=== PATIENT | female | born 1985 | race African-American/Black ===

== ENCOUNTER 2018-03-24 20:30 | Emergency (ER) | payer SELFPAY ==
[2018-03-24 21:49] LABS: ABSOLUTE BASOPHILS # (AUTO) 0.1 10^3/uL (0.0-0.2); ABSOLUTE EOSINOPHILS # (AUTO) 0.1 10^3/uL (0.0-0.6); ABSOLUTE LYMPHOCYTES (AUTO) 4.5 10^3/uL (0.5-4.7); ABSOLUTE MONOCYTES (AUTO) 0.7 10^3/uL (0.1-1.4); ABSOLUTE NEUT (AUTO) 3.7 10^3/uL (1.7-8.2); BASOPHILS % (AUTO) 1.2 % (0-2); EOSINOPHILS % (AUTO) 1.1 % (0-6); HEMATOCRIT 36.5 % (36.0-47.0); HEMOGLOBIN 12.2 g/dL (12.0-15.5); LYMPHOCYTES % (AUTO) 49.3 % (13-45); MEAN CORPUSCULAR HEMOGLOBIN 28.6 pg (27.0-33.4); MEAN CORPUSCULAR HGB CONC 33.3 g/dL (32.0-36.0); MEAN CORPUSCULAR VOLUME 86 fl (80-97); MONOCYTES % (AUTO) 7.2 % (3-13); PLATELET COUNT 364 10^3/uL (150-450); RED BLOOD COUNT 4.25 10^6/uL (3.72-5.28); RED CELL DISTRIBUTION WIDTH 15.1 % (11.5-14.0); SEGMENTED NEUTROPHILS % (AUTO) 41.2 % (42-78); TOTAL CELLS COUNTED % (AUTO) 100 %
[2018-03-24 22:02] LABS: ALANINE AMINOTRANSFERASE 13 U/L (9-52); ALBUMIN 3.9 g/dL (3.5-5.0); ALKALINE PHOSPHATASE 62 U/L (38-126); ANION GAP 11 (5-19); ASPARTATE AMINO TRANSFERASE 20 U/L (14-36); BILIRUBIN,DIRECT 0.3 mg/dL (0.0-0.4); BILIRUBIN,TOTAL 0.3 mg/dL (0.2-1.3); BLOOD UREA NITROGEN 9 mg/dL (7-20); CALCIUM 9.4 mg/dL (8.4-10.2); CARBON DIOXIDE 27 mmol/L (22-30); CHLORIDE 105 mmol/L (98-107); GLUCOSE 82 mg/dL (75-110); LIPASE 67.3 U/L (23-300); POTASSIUM 3.6 mmol/L (3.6-5.0); SODIUM 143.3 mmol/L (137-145); TOTAL PROTEIN 6.9 g/dL (6.3-8.2)
--- NOTE | 2018-03-24 22:47 | ER Document Report ---
ED GI/ - General Chief Complaint: Abdominal Pain Stated Complaint: RIGHT SIDE ABDOMINAL PAIN,DIZZINESS Time Seen by Provider: 03/24/18 22:38 Notes: Patient is a 32-year-old female that comes emergency department for chief complaint of pelvic pain, worse on the right side, she also states that she felt lightheaded earlier, she felt nauseated earlier, she "kind of had dry heaves" earlier this afternoon. Symptoms started approximately 3 days ago during sexual intercourse. She denies vaginal bleeding or discharge, dysuria, flank pain, fever or chills. Past medical history includes ovarian cysts and cholecystectomy. No daily medications. LMP within the past month. TRAVEL OUTSIDE OF THE [place] IN LAST 30 DAYS: No - Related Data Allergies/Adverse Reactions: amoxicillin Allergy (Verified 03/24/18 21:22) peanut Allergy (Verified 03/24/18 20:34) berries Allergy (Uncoded 03/24/18 20:34) Past Medical History - General Information source: Patient - Social History Smoking Status: Current Some Day Smoker Chew tobacco use (# tins/day): No Frequency of alcohol use: Occasional Drug Abuse: Marijuana Lives with: Family Family History: Reviewed & Not Pertinent Patient has suicidal ideation: No Patient has homicidal ideation: No Renal/ Medical History: Reports: Hx Ovarian Cysts. Denies: Hx Peritoneal Dialysis Past Surgical History: Reports: Hx Cholecystectomy - Immunizations Hx Diphtheria, Pertussis, Tetanus Vaccination: Yes Review of Systems - Review of Systems Constitutional: No symptoms reported EENT: No symptoms reported Cardiovascular: No symptoms reported Respiratory: No symptoms reported Gastrointestinal: See HPI Genitourinary: See HPI Female Genitourinary: See HPI Musculoskeletal: No symptoms reported Skin: No symptoms reported Hematologic/Lymphatic: No symptoms reported Neurological/Psychological: No symptoms reported Physical Exam - Vital signs Vitals: Temp Pulse Resp BP Pulse Ox 97.4 F 80 18 133/81 H 99 03/24/18 20:39 03/24/18 20:39 03/24/18 20:39 03/24/18 20:39 03/24/18 20:39 - Notes Notes: GENERAL: Alert, interacts well. No acute distress. HEAD: Normocephalic, atraumatic. EYES: Pupils equal, round, and reactive to light. Extraocular movements intact. ENT: Oral mucosa moist, tongue midline. NECK: Full range of motion. Supple. Trachea midline. LUNGS: Clear to auscultation bilaterally, no wheezes, rales, or rhonchi. No respiratory distress. HEART: Regular rate and rhythm. No murmur ABDOMEN: Soft, non-tender. Non-distended. Bowel sounds present in all 4 quadrants. GENITOURINARY: Moderately large amount of yellowish vaginal discharge, normal- appearing cervix, minimal tenderness, no other concerning a normality. Shruthi RN present during exam. EXTREMITIES: Moves all 4 extremities spontaneously. No edema, normal radial and dorsalis pedis pulses bilaterally. No cyanosis. BACK: no cervical, thoracic, lumbar midline tenderness. No saddle anesthesia, normal distal neurovascular exam. NEUROLOGICAL: Alert and oriented x3. Normal speech. [cranial nerves II through XII grossly intact]. PSYCH: Normal affect, normal mood. SKIN: Warm, dry, normal turgor. No rashes or lesions noted. Course - Re-evaluation Re-evalutation: Patient does have pelvic pain on exam but the remaining abdomen is unremarkable. She is well-appearing, she declines pain medication. Vital signs unremarkable. CBC, chemistry, urinalysis unremarkable. test is negative. Pelvic examination shows large amount of yellowish discharge, some tenderness, no other abnormalities noted otherwise. Wet mount is fairly benign with only 1 + white blood cells, no other remaining antibodies. Gonorrhea and Chlamydia negative. Ultrasound is completely unremarkable. Clinical picture is most consistent with pelvic infection. Patient was treated accordingly. I discussed in detail her findings, recommendations, follow-up, and return precautions. Patient states understanding and agreement. - Vital Signs Vital signs: Temp Pulse Resp BP Pulse Ox 97.7 F 61 16 117/85 99 03/25/18 01:43 03/25/18 01:43 03/25/18 01:43 03/25/18 01:43 03/25/18 01:43 - Laboratory Result Diagrams: 03/24/18 21:27 03/24/18 21:27 Laboratory results interpreted by me: 03/24/18 21:27 RDW 15.1 H Seg Neutrophils % 41.2 L Lymphocytes % 49.3 H Discharge - Discharge Clinical Impression: Pelvic pain, Vaginal discharge Condition: Stable Disposition: HOME, SELF-CARE Additional Instructions: You have been treated for pelvic infection. Remaining workup and evaluation does not show any concerning findings. Follow-up with primary care. Return to the emergency department for any concerning or worsening symptoms including fever of 100.4 or greater, severe pain, vomiting, or any other concerning or worsening symptoms. Forms: Return to Work
[2018-03-24 23:03] LABS: APPEARANCE,URINE SLIGHTLY-CLOUDY; BILIRUBIN,URINE NEGATIVE (NEGATIVE); COLOR,URINE YELLOW; GLUCOSE, URINE NEGATIVE (NEGATIVE); KETONES,URINE NEGATIVE (NEGATIVE); LEUKOCYTE ESTERASE,URINE NEGATIVE (NEGATIVE); NITRITE,URINE NEGATIVE (NEGATIVE); PROTEIN,URINE NEGATIVE (NEGATIVE); URINE SPECIFIC GRAVITY 1.024; UROBILINOGEN,URINE NEGATIVE mg/dL (<2.0)
[2018-03-24 23:44] LABS: T.VAGINALIS (WET MOUNT) NO TRICHOMONAS SEEN; WBCS (WET MOUNT) 1+ WBCS SEEN; YEAST (WET MOUNT) NO YEAST SEEN
[2018-03-24 23:45] LABS: RBCS (WET MOUNT) RARE RBCS SEEN
--- NOTE | 2018-03-25 00:39 | RADIOLOGY REPORT (SQ) ---
EXAM DESCRIPTION: US PELVIS COMPLETED DATE/TME: 03/24/2018 22:45 CLINICAL HISTORY: 32 years Female, right pelvic pain, nausea/vomiting, hx cysts Comparison: 2..18 Technique: Transvaginal. LIMITATIONS: None. FINDINGS: 12-cm uterus, 1.3-cm endometrial stripe thickness, 3.3-cm cervical length, 3.7-cm right ovary, and 3.2-cm left ovary appear normal in size, shape, echotexture, and vascularity. No free fluid. Ovaries have small cystic peripheral follicles within normal limits. IMPRESSION: Normal pelvic sonogram..
[2018-03-25 00:59] LABS: CHLAM PCR NOT DETECTED (NOT DETECT); GON PCR NOT DETECTED (NOT DETECT)
[2018-03-25] MEDS ORDERED: LIDOCAINE 1% INJ-PF (10 MG/ML) 30 ML SDV INJ ONE (01:23)
[2018-03-25] MEDS ORDERED: CEFTRIAXONE INJ 250 MG VIAL IM ONE (01:23)
[2018-03-25] MEDS ORDERED: AZITHROMYCIN 250 MG TABLET PO ONE (01:24)
[2018-03-25] MEDS ORDERED: ONDANSETRON 4 MG TAB.RAPDIS PO ONE (01:24)
[2018-03-25 02:31] VITALS: BP 117/85
== END 2018-03-25 01:50 | disposition home or self-care (01) ==
LOC: ER 20:30
DX: R10.2 Pelvic and perineal pain (principal); N89.8 Other specified noninflammatory disorders of vagina; R42 Dizziness and giddiness; R11.0 Nausea; F17.200 Nicotine dependence, unspecified, uncomplicated; F12.10 Cannabis abuse, uncomplicated; Z90.49 Acquired absence of other specified parts of digestive tract; Z87.42 Personal history of other diseases of the female genital tract; Z88.0 Allergy status to penicillin; Z91.010 Allergy to peanuts; Z91.018 Allergy to other foods
CPT/HCPCS: 99284; 36415; 87210; 83690; 85025; 81025; 80053; 81001; 87491; 87591; 76830; 93976; S0119; J3490; J0696

== ENCOUNTER 2018-08-01 14:13 | Emergency (ER) | payer MEDICAID ==
[2018-08-01 14:21] VITALS: BP 134/74
[2018-08-01] MEDS ORDERED: KETOROLAC TROMETHAMINE 60 MG/2 ML SDV IM ONE (14:54)
--- NOTE | 2018-08-01 15:37 | RADIOLOGY REPORT (SQ) ---
EXAM DESCRIPTION: HIP RIGHT AP/LATERAL COMPLETED DATE/TIME: 08/01/2018 3:22 pm REASON FOR STUDY: severe pain with ambulation no history of trauma COMPARISON: None. NUMBER OF VIEWS: Two views. TECHNIQUE: AP pelvis and additional frog-leg view of the right hip. LIMITATIONS: None. FINDINGS: MINERALIZATION: Normal. RIGHT HIP: No fracture or dislocation. No worrisome bone lesions. No significant joint space narrow ing or bony spurring LEFT HIP: No fracture or dislocation. No worrisome bone lesions. No significant joint space narrowi ng or bony spurring PUBIS AND ISCHIUM: No fracture. PELVIS: No fracture. SACRUM: No fracture or dislocation. No worrisome bone lesions. LOWER LUMBAR SPINE: Limited view unremarkable SOFT TISSUES: No findings. OTHER: No other significant finding. IMPRESSION: NEGATIVE STUDY OF THE RIGHT HIP. NO RADIOGRAPHIC EVIDENCE OF ACUTE INJURY. TECHNICAL DOCUMENTATION: JOB ID: [id number] [email or web address]- All Rights Reserved Reading location - IP/workstation name: [email or web address]
--- NOTE | 2018-08-01 15:39 | RADIOLOGY REPORT (SQ) ---
EXAM DESCRIPTION: FOOT BILATERAL 3 VIEWS COMPLETED DATE/TIME: 08/01/2018 3:22 pm REASON FOR STUDY: severe pain with ambulation no history of trauma. Bilateral heel pain COMPARISON: None. NUMBER OF VIEWS: Three views. TECHNIQUE: AP, lateral and oblique radiographic images acquired of the right and left foot. LIMITATIONS: None. FINDINGS: MINERALIZATION: Normal. BONES: No acute fracture or dislocation. No worrisome bone lesions. There are small plantar bilater al calcaneal spurs. JOINTS: No effusions. SOFT TISSUES: No soft tissue swelling. No foreign body. OTHER: Bilateral hammertoe deformities of the 3rd toes IMPRESSION: Bilateral small plantar calcaneal spurs TECHNICAL DOCUMENTATION: JOB ID: [id number] [employer]- All Rights Reserved Reading location - IP/workstation name: [email or web address]
--- NOTE | 2018-08-01 16:27 | ER Document Report ---
HPI - HPI Time Seen by Provider: 08/01/18 14:42 Pain Level: 4 Notes: Patient is an otherwise healthy 32-year-old female who presents with bilateral foot pain as well as right hip pain. 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 Patient denies any specific injury. - CONSTITUTIONAL Constitutional: DENIES: Fever, Chills - MUSCULOSKELETAL Musculoskeletal: REPORTS: Extremity pain - R and L Foot, R Hip Past Medical History - General Information source: Patient - Social History Smoking Status: Never Smoker Chew tobacco use (# tins/day): No Frequency of alcohol use: None Drug Abuse: None Family History: Reviewed & Not Pertinent Patient has suicidal ideation: No Patient has homicidal ideation: No Renal/ Medical History: Reports: Hx Ovarian Cysts. Denies: Hx Peritoneal Dialysis Past Surgical History: Reports: Hx Cholecystectomy - Immunizations Hx Diphtheria, Pertussis, Tetanus Vaccination: Yes Vertical Provider Document - CONSTITUTIONAL Notes: PHYSICAL EXAMINATION: GENERAL: Well-appearing, well-nourished and in no acute distress. HEAD: Atraumatic, normocephalic. EYES: Pupils equal round extraocular movements intact, conjunctiva are normal. ENT: Nares patent NECK: Normal range of motion LUNGS: No respiratory distress Musculoskeletal: Normal range of motion, no swelling, erythema or ecchymosis noted to bilateral feet or hip. Normal pulses. Cap refill less than 3 seconds , normal motor and sensation distal to areas of concern. NEUROLOGICAL: Normal speech, normal gait. PSYCH: Normal mood, normal affect. SKIN: Warm, Dry, normal turgor, no rashes or lesions noted. - INFECTION CONTROL TRAVEL OUTSIDE OF THE [place] IN LAST 30 DAYS: No Course - Re-evaluation Re-evalutation: Right hip x-ray is negative for any acute findings. Bilateral foot x-rays with calcaneal spurs, this is likely because of patient's pain as patient is not used to running. - Vital Signs Vital signs: Temp Pulse Resp BP Pulse Ox 97.6 F 81 16 134/74 H 99 08/01/18 14:15 08/01/18 14:15 08/01/18 14:15 08/01/18 14:15 08/01/18 14:15 Discharge - Discharge Clinical Impression: Heel spur Qualifiers: Laterality: unspecified laterality Qualified Code(s): M77.30 - Calcaneal spur, unspecified foot Condition: Stable Disposition: HOME, SELF-CARE Additional Instructions: The x-rays of your feet show that you have what we call heel spurs. This is a small growth of bone on the bottom of your heel. It can cause pain. If it gait becomes painful enough they may consider doing surgery although most people do fine without surgery. I would suggest taking ibuprofen 600 mg every 6 hours. I suspect the pain is so severe now because you stated that you ran and you are not used to running. Ice and elevate your feet over the next couple of days. Use the note that I have given you for work. If the pain continues please follow-up with either primary care provider or a insurance verification clerk ( foot doctor). Prescriptions: Cyclobenzaprine HCl [Flexeril 10 mg Tablet] 10 mg PO TIDP PRN #15 tab PRN Reason: Forms: Return to Work Referrals: AI FAITH MD [Primary Care Provider] - Follow up as needed
== END 2018-08-01 16:35 | disposition home or self-care (01) ==
LOC: ER 14:13
DX: M77.30 Calcaneal spur, unspecified foot (principal); M79.671 Pain in right foot; M79.672 Pain in left foot; Z90.49 Acquired absence of other specified parts of digestive tract
CPT/HCPCS: 99283; 73502; 73630; J1885

== ENCOUNTER 2018-10-04 14:14 | Emergency (ER) | payer MEDICAID ==
[2018-10-04] MEDS ORDERED: KETOROLAC TROMETHAMINE 60 MG/2 ML SDV IM ONE (14:46)
[2018-10-04] MEDS ORDERED: PROCHLORPERAZINE EDISYLATE INJ 10 MG/2 ML VIAL IM ONE (14:46)
--- NOTE | 2018-10-04 15:55 | ER Document Report ---
ED Head/Face/Scalp Injury - General Chief Complaint: Head Injury without LOC Stated Complaint: POSSIBLE HEAD INJURY/FALL Time Seen by Provider: 10/04/18 14:46 Primary Care Provider: IA FAITH MD [Primary Care Provider] - Follow up as needed Information source: Patient Notes: Chief complaint: Headache History of complain:( obtained from----patient) 32 years old female who accidentally bumped back of head on a cabinet this morning, since then having blurring of vision and headache therefore present to the ED. No focal weakness numbness tingling sensation. Onset: Sudden Duration: Since this morning Severity: Mild to moderate Quality: Sharp Context: As described above Exacerbating factor and relieving factors: None REVIEW OF SYSTEMS: CONSTITUTIONAL : Denies fever, chills, or sweats. Denies recent illness. EENT: Denies eye, ear, throat, or mouth pain or symptoms. Denies nasal or sinus congestion or discharge. Denies throat, tongue, or mouth swelling or difficulty swallowing. CARDIOVASCULAR: Denies chest pain. Denies palpitations or racing or irregular heart beat. Denies ankle edema. RESPIRATORY: Denies cough, cold, or chest congestion. Denies shortness of breath, difficulty breathing, or wheezing. GASTROINTESTINAL: Denies distention. Denies nausea, vomiting, or diarrhea. Denies blood in vomitus, stools, or per rectum. Denies black, tarry stools. Denies constipation. GENITOURINARY: Denies difficulty urinating, painful urination, burning, frequency, blood in urine, or discharge. FEMALE GENITOURINARY: Denies vaginal bleeding, heavy or abnormal periods, irregular periods. Denies vaginal discharge or odor. MUSCULOSKELETAL: Denies back or neck pain or stiffness. Denies joint pain or swelling. SKIN: Denies rash, lesions or sores. HEMATOLOGIC : Denies easy bruising or bleeding. LYMPHATIC: Denies swollen, enlarged glands. NEUROLOGICAL: Denies confusion or altered mental status. Denies passing out or loss of consciousness. Denies dizziness or lightheadedness. Denies headache. Denies weakness or paralysis or loss of use of either side. Denies problems with gait or speech. Denies sensory loss, numbness, or tingling. Denies seizures. PSYCHIATRIC: Denies anxiety or stress. Denies depression, suicidal ideation, or homicidal ideation. ALL OTHER SYSTEMS REVIEWED AND NEGATIVE. PHYSICAL EXAMINATION: GENERAL: Well-appearing, well-nourished and in no acute distress. HEAD: Atraumatic, normocephalic. EYES: Pupils equal round and reactive to light, extraocular movements intact, conjunctiva are normal. ENT: Nares patent, oropharynx clear without exudates. Moist mucous membranes. NECK: Normal range of motion, without any discomfort or pain supple without lymphadenopathy LUNGS: Breath sounds clear to auscultation bilaterally and equal. No wheezes rales or rhonchi. HEART: Regular rate and rhythm without murmurs ABDOMEN: Soft, nontender, nondistended abdomen. No guarding, no rebound. No masses appreciated. Examination of genitals-deferred Musculoskeletal: Normal range of motion, no pitting or edema. No cyanosis. NEUROLOGICAL: Cranial nerves grossly intact. Normal speech, normal gait. Normal sensory, motor exams PSYCH: Normal mood, normal affect. SKIN: Warm, Dry, normal turgor, no rashes or lesions noted. Dictation was performed using [employer] voice recognition software TRAVEL OUTSIDE OF THE [place] IN LAST 30 DAYS: No - HPI Notes: Dictated - Related Data Allergies/Adverse Reactions: amoxicillin Allergy (Verified 10/04/18 14:20) ondansetron [From Zofran] Allergy (Verified 10/04/18 14:43) peanut Allergy (Verified 10/04/18 14:20) strawberry Allergy (Verified 10/04/18 14:20) Hives tree nut Allergy (Verified 10/04/18 14:20) morphine Adverse Reaction (Verified 10/04/18 14:20) berries Allergy (Uncoded 10/04/18 14:20) Past Medical History - Social History Smoking Status: Current Every Day Smoker Chew tobacco use (# tins/day): No Frequency of alcohol use: Occasional Drug Abuse: None Lives with: Family Family History: Reviewed & Not Pertinent Patient has suicidal ideation: No Patient has homicidal ideation: No Renal/ Medical History: Reports: Hx Ovarian Cysts. Denies: Hx Peritoneal Dialysis Past Surgical History: Reports: Hx Cholecystectomy - Immunizations Hx Diphtheria, Pertussis, Tetanus Vaccination: Yes Review of Systems - Review of Systems Notes: Dictated Physical Exam - Vital signs Vitals: Temp Pulse Resp BP Pulse Ox 98 F 71 16 135/87 H 98 10/04/18 14:23 10/04/18 14:23 10/04/18 14:23 10/04/18 14:23 10/04/18 14:23 - Notes Notes: Dictated Course - Vital Signs Vital signs: Temp Pulse Resp BP Pulse Ox 98 F 71 16 135/87 H 98 10/04/18 14:23 10/04/18 14:23 10/04/18 14:23 10/04/18 14:23 10/04/18 14:23 - Diagnostic Test Radiology reviewed: Reports reviewed - Reported by radiologist as no bleed incidental finding of pituitary adenoma Discharge - Discharge Clinical Impression: Pituitary abnormality Head injury Qualifiers: Encounter type: initial encounter Qualified Code(s): S09.90XA - Unspecified injury of head, initial encounter Headache Qualifiers: Headache type: other headache syndrome Qualified Code(s): G44.89 - Other headache syndrome Condition: Fair Disposition: HOME, SELF-CARE Instructions: Head Injury Precautions ([facility]) Additional Instructions: Abnormal pituitary gland please follow-up with your primary care physician for possible MRI. Prescriptions: Hydrocodone Bit/Acetaminophen [Hydrocodon-Acetaminophen 5-325] 1 each PO TID #10 tablet Referrals: AI FAITH MD [Primary Care Provider] - Follow up as needed
--- NOTE | 2018-10-04 16:13 | RADIOLOGY REPORT (SQ) ---
EXAM DESCRIPTION: CT HEAD WITHOUT COMPLETED DATE/TIME: 10/04/2018 3:53 pm REASON FOR STUDY: Head injury COMPARISON: None. TECHNIQUE: Axial images acquired through the brain without intravenous contrast. Images reviewed wi th bone, brain and subdural windows. Additional sagittal and coronal reconstructions were generated. Images stored on PACS. All CT scanners at this facility use dose modulation, iterative reconstruction, and/or weight based d osing when appropriate to reduce radiation dose to as low as reasonably achievable (ALARA). [facility]: Dose Right [facility]: CareDose [facility]: Dose Right [facility]: Teradose 4D [facility]: Smart ClearKarma RADIATION DOSE: CT Rad equipment meets quality standard of care and radiation dose reduction techniq ues were employed. CTDIvol: 53.2 mGy. DLP: 1070 mGy-cm. mGy. LIMITATIONS: None. FINDINGS: VENTRICLES: Normal size and contour. CEREBRUM: No masses. No hemorrhage. No midline shift. No evidence for acute large vascular territo ry infarct. Focal hypoattenuation within the right basal ganglia, likely prominent rebel vascular spa ce. Normal anderson/white matter differentiation. CEREBELLUM: No masses. No hemorrhage. No alteration of density. No evidence for acute infarction. EXTRAAXIAL SPACES: Enlarged sella turcica with paucity of pituitary tissue visualized. No extra-axia l collections. No discrete masses. ORBITS AND GLOBE: No intra- or extraconal masses. Normal contour of globe without masses. CALVARIUM: No fracture. PARANASAL SINUSES: No fluid or mucosal thickening. SOFT TISSUES: No mass or hematoma. OTHER: No other significant finding. IMPRESSION: No evidence of acute intracranial abnormality. Enlarged sella turcica with paucity of pituitary tissue visualized. Findings may be incidental, rela eulalia to benign intracranial hypertension or related to other cystic pituitary lesions. MRI pituitary protocol could be considered if clinically indicated. Focal hypoattenuation within the right basal ganglia, likely prominent perivascular space. EVIDENCE OF ACUTE STROKE: NO. COMMENT: Quality ID # [id number]: Final reports with documentation of one or more dose reduction techniques (e.g., Automated exposure control, adjustment of the mA and/or kV according to patient size, use of iterative reconstruction technique) TECHNICAL DOCUMENTATION: JOB ID: [id number] [employer]- All Rights Reserved Reading location - IP/workstation name: [email or web address]
[2018-10-04 16:57] VITALS: BP 107/84
== END 2018-10-04 17:00 | disposition home or self-care (01) ==
LOC: ER 14:14
DX: S09.90XA Unspecified injury of head, initial encounter (principal); W22.8XXA Striking against or struck by other objects, initial encounter; D35.2 Benign neoplasm of pituitary gland; G44.89 Other headache syndrome; H53.8 Other visual disturbances; F17.200 Nicotine dependence, unspecified, uncomplicated; Z88.0 Allergy status to penicillin; Z88.8 Allergy status to other drugs, medicaments and biological substances; Z91.010 Allergy to peanuts; Z91.018 Allergy to other foods
CPT/HCPCS: 99283; 96372; 96374; 70450; J1885; J0780

== ENCOUNTER → 2018-10-31 | Outpatient (CLI) | payer MEDICAID ==
--- NOTE | 2018-10-31 17:16 | RADIOLOGY REPORT (SQ) ---
EXAM DESCRIPTION: MRI HEAD COMBO COMPLETED DATE/TIME: 10/31/2018 4:52 pm REASON FOR STUDY: E23.7 DISORDER OF PITUITARY GLAND, UNSPECIFIED E23.7 DISORDER OF PITUITARY GLAND, UNSPECIFIED COMPARISON: CT brain 10/04/2018 TECHNIQUE: Multiplanar imaging includes noncontrasted T1, T2, FLAIR, diffusion with ADC map and post gadolinium contrast T1 sequences. Additional thin section sagittal and coronal T2, T1 precontrast, T1 post contrasted images through th e pituitary fossa were obtained. Motion attenuation sequences were used. Images stored on PACS. CONTRAST TYPE AND DOSE: 20 mL Dotarem. RENAL FUNCTION: Not indicated. ACR Type II contrast agent associated with few, if any, unconfounded cases of NSF LIMITATIONS: None. FINDINGS: PITUITARY FOSSA: Empty sella, with an enlarged sella turcica and pancake shaped pituitary gland flattened against the floor of the sella. Pituitary gland is grossly normal in volume with a m idline infundibulum and normal suprasellar cistern/optic chiasm. Cavernous sinuses are normal. CSF SPACES: Normal in size and contour. No hemorrhage. CEREBRUM: Sulci and gyri normal in size and contour. Normal white matter signal on FLAIR imaging. No evidence of hemorrhage, mass, or extraaxial fluid collection. No abnormal enhancement post contrast. POSTERIOR FOSSA: No signal alteration. No hemorrhage. No edema, masses, or mass effect. Internal librado tory canals, cerebellopontine angles, mastoids normal. No enhancing lesions. No abnormal enhancement post contrast. DIFFUSION IMAGING: Negative for acute or subacute infarction. ORBITS: No masses. Globes normal. PARANASAL SINUSES: No fluid levels. Mucosa normal. OTHER: No other significant finding. IMPRESSION: " EMPTY SELLA" , AN ANATOMIC VARIANT. NO WORRISOME NODULES OR CONTRAST ENHANCEMENT MARQUEZ G THE PITUITARY GLAND OR CENTRAL SKULLBASE STRUCTURES OTHERWISE, UNREMARKABLE MRI OF THE BRAIN WITHOUT AND WITH INTRAVENOUS GADOLINIUM CONTRAST. EVIDENCE OF ACUTE STROKE: NO. TECHNICAL DOCUMENTATION: JOB ID: [id number] [employer]- All Rights Reserved Reading location - IP/workstation name: [email or web address]
== END ==
LOC: RAD 14:50
PROVIDERS: ATTEND Family Medicine
DX: E23.7 Disorder of pituitary gland, unspecified (principal)
CPT/HCPCS: 70553; A9576

== ENCOUNTER 2019-10-19 19:47 | Emergency (ER) | payer MEDICAID ==
[2019-10-19] MEDS ORDERED: PROMETHAZINE HCL 25 MG TABLET PO ONE (20:23)
--- NOTE | 2019-10-19 20:26 | ER Document Report ---
ED Medical Screen (RME) - General Chief Complaint: Vaginal Bleeding Stated Complaint: VAGINAL BLEEDING,ABDOMINAL PAIN 10 WEEKS PREG Time Seen by Provider: 10/19/19 20:19 Primary Care Provider: GISELLE FLORES MD [Primary Care Provider] - Follow up as needed Notes: HPI: 33-year-old female who is a G4, at approximately 10 weeks by ultrasound presenting for evaluation of pelvic cramping with vaginal bleeding. Symptoms began last night and have continued today. States bleeding was heavier earlier she is not bleeding heavily enough currently to wear a menstrual pad. Patient follows with the women's health clinic. Patient states that there were no problems with her ultrasound 2 weeks ago. I have greeted and performed a rapid initial assessment of this patient. A comprehensive ED assessment and evaluation of the patient, analysis of test results and completion of the medical decision making process will be conducted by additional ED providers PHYSICAL EXAMINATION: GENERAL: Well-appearing, well-nourished and in no acute distress. HEAD: Atraumatic, normocephalic. EYES: sclera anicteric, conjunctiva are normal. ENT: Moist mucous membranes. NECK: Normal range of motion LUNGS: Normal work of breathing, clear to auscultation HEART: 2+ radial pulses bilaterally, regular rate and rhythm ABD: limited by positioning for exam in triage. Morbidly obese. No tenderness on palpation EXTREMITIES: no pitting or edema. No cyanosis. NEUROLOGICAL: No focal neurological deficits. Moves all extremities spontaneously and on command. PSYCH: Anxious mood, normal affect. SKIN: Warm, Dry, normal turgor, no rashes or lesions noted. TRAVEL OUTSIDE OF THE [place] IN LAST 30 DAYS: No - Related Data Allergies/Adverse Reactions: amoxicillin Allergy (Verified 10/04/18 14:20) ondansetron [From Zofran] Allergy (Verified 10/04/18 14:43) peanut Allergy (Verified 10/04/18 14:20) strawberry Allergy (Verified 10/04/18 14:20) Hives tree nut Allergy (Verified 10/04/18 14:20) morphine Adverse Reaction (Verified 10/04/18 14:20) berries Allergy (Uncoded 10/04/18 14:20) Past Medical History Renal/ Medical History: Reports: Hx Ovarian Cysts. Denies: Hx Peritoneal Dialysis Past Surgical History: Reports: Hx Cholecystectomy - Immunizations Hx Diphtheria, Pertussis, Tetanus Vaccination: Yes Physical Exam - Vital signs Vitals: Temp Pulse Resp BP Pulse Ox 97.8 F 81 18 140/71 H 100 10/19/19 19:59 10/19/19 19:59 10/19/19 19:59 10/19/19 19:59 10/19/19 19:59 Course - Vital Signs Vital signs: Temp Pulse Resp BP Pulse Ox 97.8 F 81 18 140/71 H 100 10/19/19 19:59 10/19/19 19:59 10/19/19 19:59 10/19/19 19:59 10/19/19 19:59 Doctor's Discharge - Discharge Referrals: GISELLE FLORES MD [Primary Care Provider] - Follow up as needed
[2019-10-19 20:48] LABS: ABSOLUTE BASOPHILS # (AUTO) 0.2 10^3/uL (0.0-0.2); ABSOLUTE EOSINOPHILS # (AUTO) 0.1 10^3/uL (0.0-0.6); ABSOLUTE LYMPHOCYTES (AUTO) 4.2 10^3/uL (0.5-4.7); ABSOLUTE MONOCYTES (AUTO) 1.3 10^3/uL (0.1-1.4); ABSOLUTE NEUT (AUTO) 8.2 10^3/uL (1.7-8.2); BASOPHILS % (AUTO) 1.2 % (0-2); EOSINOPHILS % (AUTO) 0.9 % (0-6); HEMATOCRIT 35.4 % (36.0-47.0); HEMOGLOBIN 11.7 g/dL (12.0-15.5); MEAN CORPUSCULAR HEMOGLOBIN 27.1 pg (27.0-33.4); MEAN CORPUSCULAR HGB CONC 33.1 g/dL (32.0-36.0); MEAN CORPUSCULAR VOLUME 82 fl (80-97); MONOCYTES % (AUTO) 9.2 % (3-13); PLATELET COUNT 375 10^3/uL (150-450); RED BLOOD COUNT 4.33 10^6/uL (3.72-5.28); RED CELL DISTRIBUTION WIDTH 17.7 % (11.5-14.0); SEGMENTED NEUTROPHILS % (AUTO) 58.7 % (42-78); TOTAL CELLS COUNTED % (AUTO) 100 %; WHITE BLOOD COUNT 13.9 10^3/uL (4.0-10.5)
[2019-10-19 21:06] LABS: ALBUMIN 3.8 g/dL (3.5-5.0); ALKALINE PHOSPHATASE 56 U/L (38-126); ANION GAP 7 (5-19); ASPARTATE AMINO TRANSFERASE 19 U/L (14-36); BILIRUBIN,TOTAL 0.2 mg/dL (0.2-1.3); BLOOD UREA NITROGEN 8 mg/dL (7-20); CALCIUM 9.7 mg/dL (8.4-10.2); CARBON DIOXIDE 24 mmol/L (22-30); CHLORIDE 104 mmol/L (98-107); GLUCOSE 102 mg/dL (75-110); POTASSIUM 4.1 mmol/L (3.6-5.0); TOTAL PROTEIN 7.2 g/dL (6.3-8.2)
--- NOTE | 2019-10-19 21:29 | ER Document Report ---
ED GI/ - General Chief Complaint: Vaginal Bleeding Stated Complaint: VAGINAL BLEEDING,ABDOMINAL PAIN 10 WEEKS PREG Time Seen by Provider: 10/19/19 20:19 Primary Care Provider: GISELLE FLORES MD [ACTIVE STAFF] - Follow up as needed Mode of Arrival: Ambulatory Information source: Patient Notes: 33-year-old female presented to ED for complaint of nausea vomiting and vaginal bleeding. She states she has been bleeding spotting for 3 days but today it started to be much heavier and there was a lot of blood in the stool when she looked in the stool. She states she [facility] and had an ultrasound 2 weeks ago which was positive for a 8-week . She states she thinks her blood type is O+ but she is not sure. She states she is lighthea ded today with nausea and vomiting. She thinks she is dehydrated. She states she is only been able to keep 8 ounces of Gatorade down all day. States she has been trying B6 during this but has not helped at all. She states when she was in triage she did get a half a Phenergan tablet. Patient is alert oriented respirations regular nonlabored walking with even steady gait. She does speak in full sentences. TRAVEL OUTSIDE OF THE [place] IN LAST 30 DAYS: No - HPI Patient complains to provider of: Pelvic pain, , Vaginal discharge, Vomiting Onset: Other - Vaginal bleeding has been spotting for 3 days today it is much heavier Timing/Duration: Gradual, Better Quality of pain: Cramping Severity at maximum: Moderate Severity in ED: Moderate Pain Level: 2 Location: Pelvis Vaginal bleeding (Compared to normal period): Similar Menstrual period history: : 4 Para: 3 OB ultrasound done: Yes vitamins taken: Yes Associated symptoms: Lightheaded, Nausea, Vomiting, Other - Vaginal bleeding pelvic pain Exacerbated by: Denies Relieved by: Denies Similar symptoms previously: Yes Recently seen / treated by doctor: Yes - Related Data Allergies/Adverse Reactions: amoxicillin Allergy (Verified 10/04/18 14:20) ondansetron [From Zofran] Allergy (Verified 10/04/18 14:43) peanut Allergy (Verified 10/04/18 14:20) strawberry Allergy (Verified 10/04/18 14:20) Hives tree nut Allergy (Verified 10/04/18 14:20) morphine Adverse Reaction (Verified 10/04/18 14:20) berries Allergy (Uncoded 10/04/18 14:20) Home Medications: Prenatals. BV Past Medical History - General Information source: Patient - Social History Smoking Status: Former Smoker Chew tobacco use (# tins/day): No Frequency of alcohol use: None Drug Abuse: None Lives with: Family Family History: Reviewed & Not Pertinent Patient has suicidal ideation: No Patient has homicidal ideation: No - Past Medical History Cardiac Medical History: Reports: None Pulmonary Medical History: Reports: None EENT Medical History: Reports: None Neurological Medical History: Reports: None Endocrine Medical History: Reports: None Renal/ Medical History: Reports: Hx Ovarian Cysts Malignancy Medical History: Reports: None GI Medical History: Reports: None Musculoskeletal Medical History: Reports None Skin Medical History: Reports None Psychiatric Medical History: Reports: None Traumatic Medical History: Reports: None Infectious Medical History: Reports: None Past Surgical History: Reports: Hx Cholecystectomy - Immunizations Hx Diphtheria, Pertussis, Tetanus Vaccination: Yes Review of Systems - Review of Systems Constitutional: No symptoms reported EENT: No symptoms reported Cardiovascular: No symptoms reported Respiratory: No symptoms reported Gastrointestinal: No symptoms reported Genitourinary: No symptoms reported Female Genitourinary: , Vaginal bleeding, Other - Pelvic pain Musculoskeletal: No symptoms reported Skin: No symptoms reported Hematologic/Lymphatic: No symptoms reported Neurological/Psychological: No symptoms reported -: Yes All other systems reviewed and negative Physical Exam - Vital signs Vitals: Temp Pulse Resp BP Pulse Ox 97.8 F 81 18 140/71 H 100 10/19/19 19:59 10/19/19 19:59 10/19/19 19:59 10/19/19 19:59 10/19/19 19:59 Interpretation: Normal - General General appearance: Appears well, Alert - HEENT Head: Normocephalic, Atraumatic Eyes: Normal Pupils: PERRL - Respiratory Respiratory status: No respiratory distress Chest status: Nontender Breath sounds: Normal Chest palpation: Normal - Cardiovascular Rhythm: Regular Heart sounds: Normal auscultation Murmur: No - Abdominal Inspection: Normal Distension: No distension Bowel sounds: Normal Tenderness: Nontender Organomegaly: No organomegaly - Genitourinary External exam: Normal Speculum exam: Cervix closed, Vaginal discharge Vaginal bleeding: Mild Bimanuel exam: Adnexal tenderness - Right - Back Back: Normal, Nontender - Extremities General upper extremity: Normal inspection, Nontender, Normal color, Normal ROM, Normal temperature General lower extremity: Normal inspection, Nontender, Normal color, Normal ROM, Normal temperature, Normal weight bearing. No: Kelsey's sign - Neurological Neuro grossly intact: Yes Cognition: Normal Orientation: AAOx4 Brise[place] Coma Scale Eye Opening: Spontaneous Nelson Coma Scale Verbal: Oriented Briseida Coma Scale Motor: Obeys Commands Briseida Coma Scale Total: 15 Speech: Normal Motor strength normal: LUE, RUE, LLE, RLE Sensory: Normal - Psychological Associated symptoms: Normal affect, Normal mood - Skin Skin Temperature: Warm Skin Moisture: Dry Skin Color: Normal Course - Re-evaluation Re-evalutation: 10/20/19 01:09 Patient was treated with IV fluids and Flagyl. She does have bacterial vaginosis. All of her blood work and ultrasound were discussed with the patient and written report given to the patient to follow-up with [facility]. She states she would call her [facility] tomorrow and let them know what is happening today. Patient verbalized understanding and agreement with treatment plans and pain she was discharged home. - Vital Signs Vital signs: Temp Pulse Resp BP Pulse Ox 98.4 F 77 16 127/69 H 100 10/20/19 00:49 10/20/19 00:49 10/20/19 00:49 10/20/19 00:49 10/20/19 00:49 - Laboratory Result Diagrams: 10/19/19 20:30 10/19/19 20:30 Laboratory results interpreted by me: 10/19/19 10/19/19 20:30 20:30 WBC 13.9 H Hgb 11.7 L Hct 35.4 L RDW 17.7 H Sodium 135.3 L Creatinine 0.50 L Beta HCG, Quant 27144.00 H - Diagnostic Test Radiology reviewed: Image reviewed, Reports reviewed Discharge - Discharge Clinical Impression: Vaginal bleeding before 22 weeks gestation, Bacterial vaginosis Condition: Stable Disposition: HOME, SELF-CARE Additional Instructions: : You are . care is best started as early in as possible. If you're unsure about continuing this , you should discuss this with your physician or with checkering machine adjuster at [facility]. You should take only medications approved by your physician. Acetaminophen can safely be taken for minor pains. As a rule, medication for chronic conditions such as asthma or seizures can safely be continued. You should discuss with the physician every medicine you take. Any regular exercise program can be continued. Talk to your physician, however, before engaging in competitive or demanding sports. Alcohol, smoking, and "street drugs" are dangerous to your baby. Cocaine is especially dangerous. Don't use any illicit drugs! BLEEDING DURING EARLY : You have been evaluated for passing blood while . While we take this symptom very seriously, most women with your degree of bleeding will go on to have a perfectly normal baby. At this time, there is no indication that a miscarriage will occur. (A miscarriage occurs when the fetus is abnormal. There is no medicine or treatment to prevent it.) A more serious cause of bleeding is tubal (or ectopic) . An ultrasound usually can show whether the is in the uterus or in the tube. Sometimes in early , no fetus is seen. In this case, careful follow-up, including repeat blood tests and repeat ultrasound, is necessary. Do not douche or have sex for at least a week, or until OK'd by the doctor. Don't use tampons. Call the doctor or return for re-examination if there is an increase in bleeding or cramping, extreme weakness, fainting, new abdominal pain, fever, or passage of tissue. VAGINOSIS, BACTERIAL: Your exam shows you have bacterial vaginosis. This condition is due to an overgrowth of bacteria in the vagina. Symptoms may include vaginal itching or pain, a smelly discharge, and sometimes burning with urination. Normally this is not transmitted by sexual contact. Vaginosis can be treated with oral or topical antibiotics. Metronidazole (Flagyl) pills are usually effective. Topical vaginal creams include Cleocin and Metro-Gel. You should avoid sexual contact until your symptoms are all better. Call the doctor if you develop pelvic pain, fever, or problems with urination, or if you don't improve as expected. METRONIDAZOLE: Metronidazole (Flagyl) has been prescribed. This medication is used to kill a type of bacteria called anaerobes, and protozoan parasites such as trichomonas and Giardia. Flagyl often causes a metallic taste in the mouth and mild nausea. Do not use alcohol in any form with Flagyl (including alcohol in medication elixirs). Flagyl interacts with alcohol to cause flushing, palpitations, headache, stomach cramps, and vomiting. Do not use Flagyl if you are taking Antabuse (disulfiram). Call the doctor at once if you develop rash, shortness of breath, itching, or lightheadedness. FOLLOW-UP CARE: If you have been referred to a physician for follow-up care, call the physicians office for an appointment as you were instructed or within the next two days. If you experience worsening or a significant change in your symptoms, notify the physician immediately or return to the Emergency Department at any time for re-evaluation. Prescriptions: Metronidazole [Flagyl 250 mg Tablet] 250 mg PO BID #14 tablet Forms: Elevated Blood Pressure Referrals: [facility] [Provider Group] - Follow up as needed
[2019-10-19] MEDS ORDERED: METOCLOPRAMIDE HCL INJ/PF 10 MG/2 ML SDV IV ONE (21:30)
[2019-10-19] MEDS ORDERED: NORMAL SALINE 1000 ML 1,000 ML IV ONE (21:30)
[2019-10-19 21:50] LABS: BACTERIA (WET MOUNT) 4+ BACTERIA SEEN; EPITHELIALS (WET MOUNT) 4+ EPITHELIALS SEEN; T.VAGINALIS (WET MOUNT) NO TRICHOMONAS SEEN; WBCS (WET MOUNT) 1+ WBCS SEEN; YEAST (WET MOUNT) NO YEAST SEEN
--- NOTE | 2019-10-19 22:35 | RADIOLOGY REPORT (SQ) ---
EXAM DESCRIPTION: US LESS THAN 14 WEEKS COMPLETED DATE/TME: 10/19/2019 20:23 CLINICAL HISTORY: 33 years, Female, vag bleeding COMPARISON: Prior pelvic ultrasound dated 80 11/09/2017 TECHNIQUE: Axial 2-D grayscale images of the pelvis were acquired. Doppler was utilized. LIMITATIONS: None. FINDINGS: Uterus measures 15.0 x 10.1 x 10.1 cm in size. It contains an intramural fibroid measuring 2.6 x 3.2 x 3.5 cm in size about the rightward aspect of the uterine fundus. An intrauterine gestational sac is identified with measurements as follows: [place]-rump length: 3.1 cm Mean sac diameter: 3.35 cm Estimated gestational age is nine weeks and two days for an estimated date of delivery of 05/21/2020 heart rate is 171 bpm An area of hypoechogenicity is noted about the periphery of the gestational sac measuring 4.8 x 1.5 x 2.6 cm in size. Cervix is closed, measuring 3.9 cm in length. Right ovary measures 3.8 x 3.7 x 3.0 cm in size. It appears to contain a small anechoic lesion measuring 1.7 x 1.9 x 1.4 cm in size, compatible with a simple ovarian cyst. Otherwise, the right ovary demonstrates elements of Doppler flow. The left ovary was not visualized. No significant free fluid is identified within the pelvis. IMPRESSION: Single live intrauterine , as above. However, there is an area of perigestational hypoechogenicity measuring 4.8 x 1.5 x 2.6 cm in size, indicative of a subchorionic hematoma. Borderline elevated heart rate at 171 bpm. Fibroid uterus. copyright 2010 [employer]- All Rights Reserved
[2019-10-19 23:20] LABS: CHLAM PCR NOT DETECTED (NOT DETECT)
[2019-10-19] MEDS ORDERED: METRONIDAZOLE 500 MG TABLET PO ONE (23:50)
[2019-10-20 00:50] LABS: APPEARANCE,URINE SLIGHTLY-CLOUDY; BILIRUBIN,URINE NEGATIVE (NEGATIVE); COLOR,URINE YELLOW; GLUCOSE, URINE NEGATIVE (NEGATIVE); KETONES,URINE NEGATIVE (NEGATIVE); LEUKOCYTE ESTERASE,URINE NEGATIVE (NEGATIVE); NITRITE,URINE NEGATIVE (NEGATIVE); PROTEIN,URINE NEGATIVE (NEGATIVE); URINE SPECIFIC GRAVITY 1.017; UROBILINOGEN,URINE NEGATIVE mg/dL (<2.0)
[2019-10-20 00:51] VITALS: BP 127/69
== END 2019-10-20 01:25 | disposition home or self-care (01) ==
LOC: ER 19:47
DX: O20.9 Hemorrhage in early pregnancy, unspecified (principal); O23.591 Infection of other part of genital tract in pregnancy, first trimester; B96.89 Other specified bacterial agents as the cause of diseases classified elsewhere; O21.9 Vomiting of pregnancy, unspecified; O99.611 Diseases of the digestive system complicating pregnancy, first trimester; K92.1 Melena; O26.891 Other specified pregnancy related conditions, first trimester; R42 Dizziness and giddiness; R10.2 Pelvic and perineal pain; N89.8 Other specified noninflammatory disorders of vagina; Z88.0 Allergy status to penicillin; Z88.8 Allergy status to other drugs, medicaments and biological substances; Z91.010 Allergy to peanuts; Z91.018 Allergy to other foods; Z87.891 Personal history of nicotine dependence; Z3A.10 10 weeks gestation of pregnancy; Z79.899 Other long term (current) drug therapy
CPT/HCPCS: 99284; 96361; 96374; 86900; 86901; 36415; 87210; 84702; 85025; 80053; 81001; 87491; 87591; 76801; J2765; J3490 ×2; J7030

== ENCOUNTER 2020-03-25 09:15 | Outpatient (CLI) | payer MEDICAID ==
[2020-03-25 10:44] LABS: BACTERIA (WET MOUNT) 3+ BACTERIA SEEN; EPITHELIALS (WET MOUNT) 3+ EPITHELIALS SEEN; T.VAGINALIS (WET MOUNT) NO TRICHOMONAS SEEN; WBCS (WET MOUNT) 1+ WBCS SEEN; YEAST (WET MOUNT) YEAST SEEN
--- NOTE | 2020-03-25 11:08 | RADIOLOGY REPORT (SQ) ---
EXAM DESCRIPTION: U/S OB LIMITED IMAGES COMPLETED DATE/TIME: 03/25/2020 10:59 am REASON FOR STUDY: cervical length, presentation, fluid, weight COMPARISON: 10/19/2019 TECHNIQUE: Limited transabdominal grayscale ultrasound for evaluation of specific requested obstetri ivon parameters. LIMITATIONS: None. FINDINGS: CERVICAL LENGTH: 4.3 cm. Closed. JANE: 16.4 cm. FHR: 141 beats per minute. PRESENTATION: Cephalic. PLACENTA: Posterior in location. Grade 1 ANATOMY: Not assessed OTHER: Estimated gestational age is 34 weeks 1 day. Estimated weight is 2305 g. IMPRESSION: LIMITED OBSTETRICAL ULTRASOUND WITH MEASURED PARAMETERS DELINEATED ABOVE. Trimester of : Third trimester - 28 weeks to delivery. TECHNICAL DOCUMENTATION: JOB ID: [id number] 2010 [employer]- All Rights Reserved Reading location - IP/workstation name: [email or web address]
[2020-03-25 12:00] LABS: APPEARANCE,URINE SLIGHTLY-CLOUDY; BILIRUBIN,URINE NEGATIVE (NEGATIVE); COLOR,URINE YELLOW; GLUCOSE, URINE NEGATIVE (NEGATIVE); KETONES,URINE NEGATIVE (NEGATIVE); LEUKOCYTE ESTERASE,URINE MODERATE (NEGATIVE); NITRITE,URINE NEGATIVE (NEGATIVE); PROTEIN,URINE NEGATIVE (NEGATIVE); URINE SPECIFIC GRAVITY 1.011; UROBILINOGEN,URINE NEGATIVE mg/dL (<2.0)
[2020-03-25 12:10] LABS: CHLAM PCR NOT DETECTED (NOT DETECT)
[2020-03-25 12:17] LABS: URINE AMPHETAMINES SCREEN NEGATIVE; URINE BARBITURATES SCREEN NEGATIVE; URINE BENZODIAZEPINES SCREEN NEGATIVE; URINE COCAINE SCREEN NEGATIVE; URINE METHADONE SCREEN NEGATIVE; URINE PHENCYCLIDINE SCREEN NEGATIVE
[2020-03-25 12:21] LABS: URINE MARIJUANA (THC) SCREEN UNCONFIRMED POSITIVE
[2020-03-25] MEDS ORDERED: FLUCONAZOLE 100 MG TABLET PO ONE (12:24)
[2020-03-25] MEDS ORDERED: FLUCONAZOLE 100 MG TABLET ONE (12:44)
--- NOTE | 2020-03-25 13:15 | Non Stress Test Report ---
Non Stress Test Datetime Report Generated by CPN: 03/25/2020 13:14 DEMOGRAPHIC EGA NST: 32.4 INDICATION Indication for Study (NST) Other: IUP @ 32.4 wks, yeast infection VITAL SIGNS Temperature - NST: 98.1 Pulse - NST: 106 RESP - NST: 18 NBPSYS NST: 134 NBPDIA NST: 75 MONITORING Monitor Explained: Monitor Explained; Test Explained; Patient Verbalized Understanding Time on Monitor: 03/25/2020 11:38 Time off Monitor: 03/25/2020 12:29 NST Duration: 51 NST INTERVENTIONS NST Interventions: PO Hydration; Reposition Patient Physician Notified NST: Dr. Santiago on unit, reviewed strip BABY A: [id number] BABY A Movement : Present Contraction Frequency : irregular FHR Baseline : 140 Accelerations : 15X15 Decelerations : Late Variability : Moderate 6-25bpm NST Review: Meets Criteria for Reactive NST NST Review and Verified By : M. Martinez RN NST Results: Reactive NST COMMENTS NST Comments: Dr. Santiago notified of late deceleration, patient of large size laying flat on back. NST REPORT Report Trigger: Send Report
[2020-03-26] MEDS ORDERED: PRENATAL VITAMIN W DHA CAPSULE PO SCH (10:00)
[2020-03-26] MEDS ORDERED: ASPIRIN 81 MG TABLET, ENT COATED PO SCH (10:00)
== END 2020-03-25 13:00 | disposition home or self-care (01) ==
LOC: LC 09:15
PROVIDERS: ATTEND Obstetrics & Gynecology
DX: O98.813 Other maternal infectious and parasitic diseases complicating pregnancy, third trimester (principal); B37.9 Candidiasis, unspecified; O36.8330 Maternal care for abnormalities of the fetal heart rate or rhythm, third trimester, not applicable or unspecified; Z3A.34 34 weeks gestation of pregnancy; Z88.1 Allergy status to other antibiotic agents; Z88.6 Allergy status to analgesic agent; Z91.010 Allergy to peanuts; Z91.018 Allergy to other foods
CPT/HCPCS: 59025; 87210; 81001; 80307; 87491; 87591; 76815; G0480 ×2; J3490; 80349

== ENCOUNTER 2020-04-16 12:20 | Inpatient (IN) | payer MEDICAID ==
[2020-04-16] MEDS ORDERED: RINGERS SOLUTION,LACTATED 1,000 ML IV ONE (13:07)
[2020-04-16] MEDS ORDERED: BETAMET ACET/BETAMET NA INJ 6 MG/1 ML IM ONE (13:07)
[2020-04-16] MEDS ORDERED: PENICILLIN G-K 5 MILLION UNIT VIAL ONE (13:08)
[2020-04-16] MEDS ORDERED: BETAMET ACET/BETAMET NA INJ 6 MG/1 ML ONE (13:19)
[2020-04-16] MEDS ORDERED: PENICILLIN G POTASSIUM 5,000,000 UNIT in DEXTROSE 5%-WATER 100 ML IV ONE (13:30)
[2020-04-16 13:58] LABS: APPEARANCE,URINE SLIGHTLY-CLOUDY; BILIRUBIN,URINE NEGATIVE (NEGATIVE); COLOR,URINE YELLOW; GLUCOSE, URINE NEGATIVE (NEGATIVE); KETONES,URINE 20 mg/dL (NEGATIVE); LEUKOCYTE ESTERASE,URINE TRACE (NEGATIVE); NITRITE,URINE NEGATIVE (NEGATIVE); PROTEIN,URINE NEGATIVE (NEGATIVE); URINE SPECIFIC GRAVITY 1.014
[2020-04-16 14:15] LABS: ABSOLUTE BASOPHILS # (AUTO) 0.1 10^3/uL (0.0-0.2); ABSOLUTE EOSINOPHILS # (AUTO) 0.1 10^3/uL (0.0-0.6); ABSOLUTE NEUT (AUTO) 6.2 10^3/uL (1.7-8.2); EOSINOPHILS % (AUTO) 0.7 % (0-6); TOTAL CELLS COUNTED % (AUTO) 100 %
[2020-04-16 14:21] LABS: ABSOLUTE LYMPHOCYTES (AUTO) 2.2 10^3/uL (0.5-4.7); ABSOLUTE MONOCYTES (AUTO) 0.8 10^3/uL (0.1-1.4); BASOPHILS % (AUTO) 0.8 % (0-2); HEMATOCRIT 31.1 % (36.0-47.0); HEMOGLOBIN 10.6 g/dL (12.0-15.5); LYMPHOCYTES % (AUTO) 23.4 % (13-45); MEAN CORPUSCULAR HEMOGLOBIN 28.4 pg (27.0-33.4); MEAN CORPUSCULAR HGB CONC 33.9 g/dL (32.0-36.0); MEAN CORPUSCULAR VOLUME 84 fl (80-97); PLATELET COUNT 469 10^3/uL (150-450); RED BLOOD COUNT 3.71 10^6/uL (3.72-5.28); RED CELL DISTRIBUTION WIDTH 16.5 % (11.5-14.0); SEGMENTED NEUTROPHILS % (AUTO) 66.1 % (42-78); WHITE BLOOD COUNT 9.4 10^3/uL (4.0-10.5)
[2020-04-16] MEDS ORDERED: LIDOCAINE 1% INJ-PF (10 MG/ML) 30 ML SDV ONE (14:32)
[2020-04-16] MEDS ORDERED: MISOPROSTOL 0.2 MG TABLET ONE (14:32)
[2020-04-16] MEDS ORDERED: OXYTOCIN/0.9 % SODIUM CHLORIDE 30 UNIT/500 ML RTUINJ ONE (14:32)
[2020-04-16] MEDS ORDERED: OXYTOCIN 10 UNIT/ML VIAL ONE (14:32)
[2020-04-16 14:41] LABS: URINE AMPHETAMINES SCREEN NEGATIVE; URINE BARBITURATES SCREEN NEGATIVE; URINE BENZODIAZEPINES SCREEN NEGATIVE; URINE COCAINE SCREEN NEGATIVE; URINE METHADONE SCREEN NEGATIVE; URINE PHENCYCLIDINE SCREEN NEGATIVE
[2020-04-16 14:52] LABS: URINE MARIJUANA (THC) SCREEN UNCONFIRMED POSITIVE
[2020-04-16] MEDS ORDERED: ROPIVACAINE HCL 0.2% INJ/PF (2 MG/ML) 20 ML SDV ONE (15:08)
[2020-04-16] MEDS ORDERED: EPHEDRINE SULFATE INJ 50 MG/1 ML AMPULE ONE (15:12)
[2020-04-16] MEDS ORDERED: FENTANYL/BUPIVACAINE/NS/PF 300 MCG/150 ML RTUINJ EPI ONE (15:12)
--- NOTE | 2020-04-16 16:58 | Admission Physical ---
Datetime Report Generated by CPN: 04/16/2020 16:58 CURRENT ADMISSION Chief Complaint: Uterine Contractions Indication for Induction: Not Applicable Admit Impression : , Intrauterine Admit Plan: Admit to Unit; Initiate Labor Protocol ALLERGIES Medication Allergies: Yes Medication Allergies: peanut/Unknown reactio (04/16/2020); morphine (10/04/2018); amoxicillin/MO/GI upset (04/16/2020); ondansetron (10/04/2018); strawberry/Hives (10/04/2018); tree nut (10/04/2018) Latex: Latex Allergies OBSTETRICAL HISTORY EDC: 05/16/2020 00:00 : 4 Para: 3 Term: 2 : 1 SAB: 0 IAB: 0 Ectopic: 0 Livin Cesareans: 0 VBACs: 0 Gestational Diabetes: Yes Rh Sensitization: No Incompetent Cervix: No JUVE: No Infertility: No ART Treatment: No Uterine Anomaly: No IUGR: No Hx Previous C/S: No Macrosomia: No Hx Loss/Stillborn: No PIH: No Hx : No Placenta Previa/Abruption: No Depression/PP Depression: No PTL/PROM: No Post Hemorrhage: No Current Procedures: Ultrasound SEE RECORDS Alcohol: No Marijuana : Yes Cocaine: No Other Illicit Drugs: No Cigarettes: Former Smoker. [id number] MEDICAL HISTORY Diabetes: Yes Diabetes Type: Gestational Diabetes Blood Transfusion: No Pulmonary Disease (Asthma, TB): No Breast Disease: No Hypertension: No Pharmacy Specialist Surgery: No Heart Disease: No Hosp/Surgery: Yes Autoimmune Disorder: No Anesthetic Complications: No Kidney Disease: No Abnormal Pap Smear: No Neuro/Epilepsy: No Psychiatric Disorders: No Other Medical Diseases: No Hepatitis/Liver Disease: No Significant Family History: No Varicosities/Phlebitis: No Trauma/Violence : No Thyroid Dysfunction: No Medical History Comments: childbirth INFECTIOUS HISTORY Gonorrhea: No Genital Herpes: No Chlamydia: No Tuberculosis: No Syphilis: No Hepatitis: No HIV/AIDS Exposure: No Rash or Viral Illness: No HPV: No PHYSICAL EXAM General: Normal HEENT: Normal Neurologic: Normal Thyroid: Deferred Heart: Normal Lungs: Normal Breast: Deferred Back: Normal Abdomen: Normal Genitourinary Exam: Normal Extremities: Normal DTRs: Normal Pelvic Type: Adequate Physical Exam Comments: pelvis proven to 7#11 Vital Signs: Reviewed VAGINAL EXAM Dilatation: 5 Effacement: 90 Station: -2 MEMBRANES Membranes: Bulging FETUS A EGA: 35.5 Monitoring: External US FHR- Baseline: 140 Variability: Moderate 6-25bpm Accelerations: 15X15 Decelerations: None FHR Category: Category I Estimated Weight (gm): 3300 Presentation: Vertex Admit Comment: with hx PTD at 35 weeks. hx anxiety and depression. current GDM, bs 87. GBS unknown, GBS swab done and penicillin started. c/w dr Larkin and one dose celestone given. P: anticipate . nursery notified. PLANS FOR LABOR AND DELIVERY Labor and Delivery: None Pain Management: Epidural Feeding Preference: Breast Benefit of Breast Feed Discussed: Yes Circumcision: No INFORMED CONSENT Assignment: Madisyn Larkin MD Signature: with User ID: [email or web address] : with User ID: [email or web address]
[2020-04-16] MEDS ORDERED: PENICILLIN G POTASSIUM 2,500,000 UNIT in DEXTROSE 5%-WATER 50 ML IV SCH (17:30)
[2020-04-16] MEDS ORDERED: MAGNESIUM HYDROXIDE SUSP 30 ML UDCUP PO PRN (19:39)
[2020-04-16] MEDS ORDERED: ACETAMINOPHEN 650 MG SUPP.RECT PR PRN (19:39)
[2020-04-16] MEDS ORDERED: ZOLPIDEM TARTRATE 5 MG TABLET PO PRN (19:39)
[2020-04-16] MEDS ORDERED: NA PHOS,M-B/NA PHOS,DI-BA (ADULT) 133 ML ENEMA PR PRN (19:39)
[2020-04-16] MEDS ORDERED: ACETAMINOPHEN WITH CODEINE #3 TABLET PO PRN ×2 (19:39)
[2020-04-16] MEDS ORDERED: DIPHENHYDRAMINE HCL 25 MG CAPSULE PO PRN (19:39)
[2020-04-16] MEDS ORDERED: GLYCERIN/WITCH HAZEL LEAF 1 EACH MED..WIPE TP PRN (19:39)
[2020-04-16] MEDS ORDERED: PROMETHAZINE HCL 25 MG TABLET PO PRN (19:39)
[2020-04-16] MEDS ORDERED: OXYTOCIN/0.9 % SODIUM CHLORIDE 30 UNIT/500 ML RTUINJ IV PRN (19:39)
[2020-04-16] MEDS ORDERED: MEASLES,MUMPS&RUBELLA VACC/PF 0.5 ML VIAL SUBCUT PRN (19:39)
[2020-04-16] MEDS ORDERED: DIPH/PERTUSS(ACELL)/TETANUS VAC/PF 0.5 ML SYR (>=10YO) IM PRN (19:39)
[2020-04-16] MEDS ORDERED: PSEUDOEPHEDRINE HCL 30 MG TABLET PO PRN (19:39)
[2020-04-16] MEDS ORDERED: PROMETHAZINE HCL INJ 25 MG/1 ML VIAL IV PRN (19:39)
[2020-04-16] MEDS ORDERED: PROMETHAZINE HCL 25 MG SUPP.RECT PR PRN (19:39)
[2020-04-16] MEDS ORDERED: BENZOCAINE/MENTHOL AEROSOL SPRAY 56 ML TOP PRN (19:39)
[2020-04-16] MEDS ORDERED: DIBUCAINE 1% OINTMENT 28 GM TP PRN (19:39)
[2020-04-16] MEDS ORDERED: IBUPROFEN 800 MG TABLET ONE (19:47)
--- NOTE | 2020-04-16 21:09 | Delivery Summary ---
Del Sum A-C Datetime Report Generated by CPN: 04/16/2020 21:09 DELIVERY PERSONNEL DELIVERY PERSONNEL: [id number] Delivery Doctor:: Madisyn Larkin MD LICENSED SOCIAL WORKER:: Beth Randle CRNA Labor and Delivery Nurse:: Adriel Guzman RN Nursery Nurse:: Zaira Taylor, RN MATERNAL INFORMATION Delivery Anesthesia: Epidural Medications After Delivery: Pitocin 30 Units in 500ml NS/D5W Estimated Blood Loss (ml): 250 Delivery QBL: 250 Maternal Complications: None Provider Comments: Called to room as patient felt pressure with urge to push. She pushed through one contraciton and delivered over intact perineum. Infant had loose nuchal and delivered through. vigorous at delivery and cord clamping delayed for 30 seconds. After cord clamped and cut, infant placed skin to skin with mother. Both Mother and infant stable. No lacerations for repair. Fundus firm LABOR SUMMARY EDC: 05/16/2020 00:00 No. Babies in Womb: 1 Attempted: No Labor Anesthesia: Epidural LABOR INFORMATION Reason for Induction: Not Applicable Onset of Labor: 04/16/2020 12:33 Complete Dilatation: 04/16/2020 19:20 Oxytocin: N/A Group B Beta Strep: unknown Antibiotics # of Doses: 2 Antibiotics Time of Last Dose: 04/16/2020 17:16 Name of Antibiotic Given: Penicillin Steroids Given: Partial Course Reason Steroids Not Administered: Not Applicable MEMBRANES Membranes Rupture Method: Artificial Rupture of Membranes: 04/16/2020 17:28 Length of Rupture (hr): 2.00 Amniotic Fluid Color: Clear Amniotic Fluid Amount: Copious Amniotic Fluid Odor: None STAGES OF LABOR Stage 1 hr: 6 Stage 1 min: 47 Stage 2 hr: 0 Stage 2 min: 8 Stage 3 hr: 0 Stage 3 min: 3 Total Time in Labor hr: 6 Total Time in Labor min: 58 VAGINAL DELIVERY Episiotomy: None Laceration #1: None Laceration Extension #1: N/A Laceration Repair: Not Applicable Sponge Count Correct: Yes Sharps Count Correct: Yes CSECTION DELIVERY Primary Indication: N/A Secondary Indication: N/A CSection Incidence: N/A Labor: N/A Elective: N/A CSection Incision: N/A BABY A INFORMATION Delivery Date/Time: 04/16/2020 19:28 Method of Delivery: Vaginal Nurse Controlled Delivery: No Born in Route : No : N/A Forceps: N/A Vacuum Extraction: N/A Shoulder Dystocia : No PRESENTATION/POSITION BABY A Presentation: Cephalic Cephalic Presentation: Vertex Vertex Position: Left Occipital Anterior Breech Presentation: N/A PLACENTA INFORMATION BABY A Placenta Delivery Time : 04/16/2020 19:31 Placenta Method of Delivery: Spontaneous Placenta Status: Delivered SCORES BABY A Heart Rate 1 min: >100 bpm Resp Effort 1 min: Good Cry Reflex Irritability 1 min: Cough or Sneeze or Pulls Away Muscle Tone 1 min: Active Motion Color 1 min: Blue/Pale SCORE 1 MIN: 8 Heart Rate 5 min: >100 bpm Resp Effort 5 min: Good Cry Reflex Irritability 5 min: Cough or Sneeze or Pulls Away Muscle Tone 5 min: Active Motion Color 5 min: Body [place], Extremities Blue SCORE 5 MIN: 9 INFANT INFORMATION BABY A Gestational Age at Delivery: 35.5 Gestational Status: Late - 34- 36.6 Weeks Infant Outcome : Liveborn Infant Condition : Stable Sex: Female IDENTIFICATION BABY A Verification Date/Time: 04/16/2020 20:16 ID Band Number: [id number] Mother's Name Verified: Yes Infant RN Verifying : Thaddeus Thomas, YESSENIA Additional Verifying Personnel: Yumiko Cloud [facility] WEIGHT/LENGTH BABY A Birthweight (gm): 3423 Weight (lb): 7 Infant Weight (oz): 9 Length (in): 19.75 Length (cm): 50.17 CORD INFORMATION BABY A No. Cord Vessels: 3 Nuchal Cord : Around Neck x1, Loose Cord Blood Taken: Yes-For Eval (Mom's Blood Type - or O+) Suction: None ASSESSMENT BABY A Complications: None Physical Findings at Delivery: Within Normal Limits Infant Respirations: Appears Normal Skin to Skin: Yes Skin to Skin Time (min): 60 Transferred To: Remains with Mother BABY B INFORMATION : N/A SIGNATURES Signature: with User ID: Richy : with User ID: [email or web address] : I was personally available for consultation and serving as supervising physician for the MLP.
--- NOTE | 2020-04-16 21:09 | Birth Certificate Data ---
Cert Data Datetime Report Generated by CPN: 04/16/2020 21:09 CERTIFICATE DATA 47a. Care: Yes (03/25/2020 09:57:Bel Villarreal RN) 47b. Date of First Visit: 11/09/2019 00:00 (03/25/2020 09:57:Bel Villarreal RN) 47c. Date of Last Visit: 03/25/2020 00:00 (03/25/2020 09:57:Bel Villarreal RN) 47d. Number of Visits: 8 (03/25/2020 09:57:Bel Villarreal RN) 48a. Number of Prev Live Births: 3 (03/25/2020 09:57:Santa Katz RN) 48b. Now Livin (03/25/2020 09:57:Santa Katz RN) 48c. Live Births Now : 0 (03/25/2020 09:57:QS system process) 48e. Losses: 0 (03/25/2020 09:57:Santa Katz RN) RISK FACTORS IN THIS 49a. Diabetes: Yes (03/25/2020 09:57:Santa Katz RN) Type of Diabetes: Gestational Diabetes (03/25/2020 09:57:Santa Katz RN) 49b. Hypertension: No (03/25/2020 09:57:Santa Katz RN) 49c. Previous Births: 1 (03/25/2020 09:57:Santa Katz RN) 49d. Stillborns: No (03/25/2020 09:57:Santa Katz RN) 49d. IUGR: No (03/25/2020 09:57:Santa Katz RN) 49e. Infertility Treatment: No (03/25/2020 09:57:Santa Katz RN) 49f. Previous Cesareans: 0 (03/25/2020 09:57:Bel Villarreal RN) Mother's Height 50b. Height Inches: 68 (03/25/2020 11:58:QS system process) Mother's Weight 51a. Pre- Weight (lbs): 268 (03/25/2020 09:57:Bel Villarreal RN) 51b. Weight at Delivery (lbs): 297 (03/25/2020 11:58:QS system process) 52. Dt Last Normal Menses Began: 07/30/2019 00:00 (03/25/2020 09:57:Santa Katz RN) Infections Present/Treated 53a. Gonorrhea: No (03/25/2020 09:57:Santa Katz RN) Results this Hospital Visit : Negative (03/25/2020 09:57:Adriel Guzman RN) 53b. Syphilis: No (03/25/2020 09:57:Santa Katz RN) 53c. Chlamydia: No (03/25/2020 09:57:Santa Katz RN) Results this Hospital Visit: Negative (03/25/2020 09:57:Adriel uGzman RN) 53d. Hepatitis B: No (03/25/2020 09:57:Santa Katz RN) Results this Hospital Visit: Negative (03/25/2020 09:57:Santa Katz RN) 53e. Hepatitis C: Negative (03/25/2020 09:57:Adriel Guzman RN) 53j. Test Result: Negative (03/25/2020 09:57:Santa Katz RN) Obstetric Procedures 54a, b, c. Obstetric Procedures: Ultrasound (03/25/2020 09:57:Santa Katz RN) Cigarette Smoking 55a. Packs: 2 (03/25/2020 09:57:Santa Katz RN) 55b. Packs: 0 (03/25/2020 09:57:Santa Katz RN) 55c. Packs: 0 (03/25/2020 09:57:Santa Katz RN) 55d. Packs: 0 (03/25/2020 09:57:Santa Katz RN) Onset of Labor 56a. PROM >12 Hrs: 2.00 (03/25/2020 09:57:QS system process) 56b. Precipitous Labor <3 Hrs: 6 (03/25/2020 09:57:QS system process) 56c. Prolonged Labor > 20 Hrs: 6 (03/25/2020 09:57:QS system process) 57a. Induction of Labor: N/A (03/25/2020 09:57:Adriel Guzman RN) 57c. Non-Vertex Presentation A: Vertex (03/25/2020 09:57:Madisyn Larkin MD) 57d. Steroids - Lung Mat: Partial Course (03/25/2020 09:57:Madisyn Larkin MD) 57d. Steroids - Lung Mat: Celestone 12mg IM - Dose 1 (04/16/2020 13:46:Santa Katz RN) 57d. Steroids - Lung Mat: Not Applicable (03/25/2020 09:57:Adriel Guzman RN) 57e. Antibiotics During Labor: PCN (03/25/2020 09:57:Madisyn Larkin MD) 57e. Antibiotics During Labor: 04/16/2020 17:16 (03/25/2020 09:57:Adriel Guzman RN) 57f. Mat [place] or Temp >100.4: 98.6 (03/25/2020 09:57:Adriel Guzman RN) 57g. Moderate/Heavy Meconium: Clear (04/16/2020 17:28:Santa Katz RN) 57h. Intolerance of Labor: N/A (03/25/2020 09:57:Adriel Guzman RN) : N/A (03/25/2020 09:57:Adriel Guzman RN) 57i. Epidural/Spinal Anesthesia: Epidural (03/25/2020 09:57:Adriel Guzman RN) Method of Delivery 58a. Forceps - Unsuccessful A: N/A (03/25/2020 09:57:Adriel Guzman RN) 58b. Vacuum - Unsuccessful A: N/A (03/25/2020 09:57:Adriel Guzman RN) 58c. Presentation at 58c. Presentation at - A : Vertex (03/25/2020 09:57:Madisyn Larkin MD) 58c. Presentation at - A : N/A (03/25/2020 09:57:Adriel Guzman RN) 58c. Presentation at - A : Cephalic (03/25/2020 09:57:Madisyn Larkin, MD) Final Route and Method of Del 58d. Baby A Route/Delivery: Vaginal (04/16/2020 19:28:Adriel Guzman RN) 58e. Trial of Labor Attempted: No (03/25/2020 09:57:Adriel Guzman RN) 58e. Trial of Labor Attempted A: N/A (03/25/2020 09:57:Adriel Guzman RN) 58e. Trial of Labor Attempted B: N/A (03/25/2020 09:57:Adriel Guzman RN) Maternal Morbidity 59b. 3rd or 4th Degree Lacs: None (03/25/2020 09:57:Madisyn Larkin, MD) Birthweight Baby A: 3423 (03/25/2020 09:57:Adriel Guzman RN) 60a. Pounds : 7 (03/25/2020 09:57:QS system process) 60b. Ounces: 9 (03/25/2020 09:57:QS system process) 61. GA at Delivery Baby A: 35.5 (03/25/2020 09:57:Adriel Guzman RN) : Late - 34- 36.6 Weeks (03/25/2020 09:57:QS system process) 62a. 5 Minute Baby A: 9 (03/25/2020 09:57:QS system process)
[2020-04-16] MEDS: FAMOTIDINE 20 MG TABLET PO SCH (23:03)
[2020-04-17] MEDS: IBUPROFEN 800 MG TABLET PO SCH ×5 (00:34→21:41)
[2020-04-17 09:12] LABS: HEMOGLOBIN 9.9 g/dL (12.0-15.5); MEAN CORPUSCULAR HGB CONC 32.9 g/dL (32.0-36.0); MEAN CORPUSCULAR VOLUME 85 fl (80-97); PLATELET COUNT 375 10^3/uL (150-450); RED BLOOD COUNT 3.53 10^6/uL (3.72-5.28); RED CELL DISTRIBUTION WIDTH 16.5 % (11.5-14.0); WHITE BLOOD COUNT 17.3 10^3/uL (4.0-10.5)
[2020-04-17] MEDS: DOCUSATE SODIUM 100 MG CAPSULE PO SCH ×2 (11:00→17:16)
[2020-04-17] MEDS: SENNOSIDES/DOCUSATE 8.6-50 MG 1 EACH TABLET PO SCH (11:00)
[2020-04-17] MEDS: FERROUS SULFATE 325 MG TABLET PO SCH ×2 (11:00→17:16)
[2020-04-17] MEDS: PRENATAL VITAMIN W DHA CAPSULE PO SCH (11:00)
[2020-04-17] MEDS: FAMOTIDINE 20 MG TABLET PO SCH ×2 (11:05→21:45)
--- NOTE | 2020-04-17 11:46 | PDOC PROGRESS REPORT ---
Subjective-OB Progress Note for:: 04/17/20 Subjective: 34yo G4 now P4 s/p ppd1. Pt is ambulating and voiding without difficulty. Reports pain well controlled with medication, denies any concerns at this time. Physical Exam (OB) Vital Signs: Temp Pulse Resp BP Pulse Ox 98.1 F 88 17 121/72 98 04/17/20 07:39 04/17/20 07:39 04/17/20 07:39 04/17/20 07:39 04/17/20 07:39 Intake & Output 04/16/20 04/17/20 04/18/20 06:59 06:59 06:59 Intake Total 690 Output Total 300 Balance -300 690 - General General Appearance: Appears well In distress: None - PIH/Pre-Eclampsia Headache: Absent Epigastric Pain: No Visual Changes: No - Maternal Morbidity 59. Maternal Morbidity (serious complications experinced by the mother associated with labor and delivery: None of the above - Episiotomy/Laceration Site Condition: N/A - Lochia Lochia Amount: Small 10-25 ml Lochia Color: Rubra/Red - Abdomen Description: Soft Hernia Present: No Fundal Description: Firm, Midline Fundal Height: u/u - u/2 - Respiratory Respiratory Status: No respiratory distress - Extremities Upper extremity: Normal inspection Lower extremities: Edema - Neurological Cognition: Normal Orientation: AAOx4 - Psychological Associated symptoms: Normal affect, Normal mood Objective-Diagnostic Laboratory: 04/17/20 07:28 04/16/20 04/16/20 04/16/20 12:45 13:50 13:50 WBC 9.4 RBC 3.71 L Hgb 10.6 L Hct 31.1 L MCV 84 MCH 28.4 MCHC 33.9 RDW 16.5 H Plt Count 469 H Seg Neutrophils % 66.1 Urine Color YELLOW Urine Appearance SLIGHTLY-CLOUDY Urine pH 6.0 Ur Specific [place] 1.014 Urine Protein NEGATIVE Urine Glucose (UA) NEGATIVE Urine Ketones 20 H Urine Blood NEGATIVE Urine Nitrite NEGATIVE Ur Leukocyte Esterase TRACE H Urine WBC (Auto) 3 Urine RBC (Auto) 1 Blood Type O POSITIVE Antibody Screen NEGATIVE 04/17/20 07:28 WBC 17.3 H RBC 3.53 L Hgb 9.9 L Hct 30.0 L MCV 85 MCH 28.0 MCHC 32.9 RDW 16.5 H Plt Count 375 Seg Neutrophils % Urine Color Urine Appearance Urine pH Ur Specific [place] Urine Protein Urine Glucose (UA) Urine Ketones Urine Blood Urine Nitrite Ur Leukocyte Esterase Urine WBC (Auto) Urine RBC (Auto) Blood Type Antibody Screen Assessment and Plan(PN) - Assessment and Plan (1) labor in third trimester Qualifiers: labor delivery status: with delivery in third trimester Fetus number: single or unspecified fetus Qualified Code(s): O60.14X0 - Pre term labor third trimester with delivery third trimester, not applicable or unspecified Is this a current diagnosis for this admission?: Yes Plan: delivered (2) Vaginal delivery Is this a current diagnosis for this admission?: Yes Plan: routine pp care (3) Gestational diabetes mellitus (GDM) affecting fourth Is this a current diagnosis for this admission?: Yes Plan: diet controlled, needs fasting bs at pp visit (4) Drug use affecting Qualifiers: Trimester: third trimester Qualified Code(s): O99.323 - Drug use complicating , third trimester Is this a current diagnosis for this admission?: Yes Plan: cessation encouraged - Time Spent with Patient Time with patient: Less than 15 minutes Smoking Education Provided: Over 3 minutes Medications reviewed and adjusted accordingly: Yes - Disposition Anticipated Discharge Disposition: Home, Self Care Anticipated Discharge Timeframe: within 24 hours
[2020-04-18] MEDS: IBUPROFEN 800 MG TABLET PO SCH (06:31)
--- NOTE | 2020-04-18 09:49 | PDOC PROGRESS REPORT ---
Subjective-OB Progress Note for:: 04/18/20 Subjective: Feeling better now, uses [facility] everyday for nausea, wants to go home, baby going, voiding, does not want anything for depression Physical Exam (OB) Vital Signs: Temp Pulse Resp BP Pulse Ox 97.5 F 78 18 140/70 H 98 04/18/20 08:00 04/18/20 08:00 04/18/20 08:00 04/18/20 08:00 04/18/20 08:00 Intake & Output 04/17/20 04/18/20 04/19/20 06:59 06:59 06:59 Intake Total 690 Output Total 300 Balance -300 690 - PIH/Pre-Eclampsia DTR's: 1 + Clonus: Negative Headache: Absent Epigastric Pain: No Visual Changes: No - Maternal Morbidity 59. Maternal Morbidity (serious complications experinced by the mother associated with labor and delivery: None of the above - Lochia Lochia Amount: Scant < 10 ml Lochia Color: Rubra/Red - Abdomen Description: Soft, Round Hernia Present: No Fundal Description: Firm, Midline Fundal Height: u/u - u/2 Objective-Diagnostic Laboratory: 04/17/20 07:28 Assessment and Plan(PN) - Assessment and Plan (1) labor in third trimester Qualifiers: labor delivery status: with delivery in third trimester Fetus number: single or unspecified fetus Qualified Code(s): O60.14X0 - labor third trimester with delivery third trimester, not applicable or unspecified Is this a current diagnosis for this admission?: Yes (2) Vaginal delivery Is this a current diagnosis for this admission?: Yes (3) Gestational diabetes mellitus (GDM) affecting fourth Is this a current diagnosis for this admission?: Yes (4) Drug use affecting Qualifiers: Trimester: third trimester Qualified Code(s): O99.323 - Drug use complicating , third trimester Is this a current diagnosis for this admission?: Yes - Time Spent with Patient Time with patient: Less than 15 minutes Smoking Education Provided: Over 3 minutes Medications reviewed and adjusted accordingly: Yes - Disposition Anticipated Discharge Disposition: Home, Self Care Anticipated Discharge Timeframe: within 24 hours
--- NOTE | 2020-04-18 09:53 | PDOC DISCHARGE SUMMARY ---
Impression - Admit/DC Date/PCP Admission Date/Primary Care Provider: 04/16/20 14:34 ZAY MERINO MD Discharge Date: 04/18/20 - Discharge Diagnosis (1) labor in third trimester Is this a current diagnosis for this admission?: Yes (2) Vaginal delivery Is this a current diagnosis for this admission?: Yes (3) Gestational diabetes mellitus (GDM) affecting fourth Is this a current diagnosis for this admission?: Yes (4) Drug use affecting Is this a current diagnosis for this admission?: Yes - Additional Information Resuscitation Status: Full Code Discharge Diet: As Tolerated, Regular Discharge Activity: Activity As Tolerated, Pelvic Rest Referrals: ZAY MERINO MD [Primary Care Provider] - (1 week for BP check) Home Medications: Vitamin [-U Multiple Vitamin Capsule] 1 cap PO DAILY 03/25/20 HPI Gestational Age: 35.5 Reason(s) for Admission: Onset of Labor, Gestional Diabetes Admission Note: gestational hypertension Procedures: NST, Ultrasound Intrapartum Procedure(s): Spontaneous Vaginal Delivery Hospital Course Hospital Course: routine 59. Maternal Morbidity (serious complications experinced by the mother associated with labor and delivery: None of the above Results Laboratory Results: WBC 17.3 10^3/uL (4.0-10.5) H 04/17/20 07:28 RBC 3.53 10^6/uL (3.72-5.28) L 04/17/20 07:28 Hgb 9.9 g/dL (12.0-15.5) L 04/17/20 07:28 Hct 30.0 % (36.0-47.0) L 04/17/20 07:28 MCV 85 fl (80-97) 04/17/20 07:28 MCH 28.0 pg (27.0-33.4) 04/17/20 07:28 MCHC 32.9 g/dL (32.0-36.0) 04/17/20 07:28 RDW 16.5 % (11.5-14.0) H 04/17/20 07:28 Plt Count 375 10^3/uL (150-450) 04/17/20 07:28 Lymph % (Auto) 23.4 % (13-45) 04/16/20 13:50 [place] % (Auto) 9.0 % (3-13) 04/16/20 13:50 Eos % (Auto) 0.7 % (0-6) 04/16/20 13:50 Baso % (Auto) 0.8 % (0-2) 04/16/20 13:50 Absolute Neuts (auto) 6.2 10^3/uL (1.7-8.2) 04/16/20 13:50 Absolute Lymphs (auto) 2.2 10^3/uL (0.5-4.7) 04/16/20 13:50 Absolute Monos (auto) 0.8 10^3/uL (0.1-1.4) 04/16/20 13:50 Absolute Eos (auto) 0.1 10^3/uL (0.0-0.6) 04/16/20 13:50 Absolute Basos (auto) 0.1 10^3/uL (0.0-0.2) 04/16/20 13:50 Seg Neutrophils % 66.1 % (42-78) 04/16/20 13:50 POC Glucose 101 mg/dL (70-110) 04/18/20 06:51 Urine Color YELLOW 04/16/20 12:45 Urine Appearance SLIGHTLY-CLOUDY 04/16/20 12:45 Urine pH 6.0 (5.0-9.0) 04/16/20 12:45 Ur Specific [place] 1.014 04/16/20 12:45 Urine Protein NEGATIVE mg/dL (NEGATIVE) 04/16/20 12:45 Urine Glucose (UA) NEGATIVE mg/dL (NEGATIVE) 04/16/20 12:45 Urine Ketones 20 mg/dL (NEGATIVE) H 04/16/20 12:45 Urine Blood NEGATIVE (NEGATIVE) 04/16/20 12:45 Urine Nitrite NEGATIVE (NEGATIVE) 04/16/20 12:45 Urine Bilirubin NEGATIVE (NEGATIVE) 04/16/20 12:45 Urine Urobilinogen 2.0 mg/dL (<2.0) H 04/16/20 12:45 Ur Leukocyte Esterase TRACE (NEGATIVE) H 04/16/20 12:45 Urine WBC (Auto) 3 /HPF 04/16/20 12:45 Urine RBC (Auto) 1 /HPF 04/16/20 12:45 Squamous Epi Cells Auto 1 /HPF 04/16/20 12:45 Urine Mucus (Auto) OCC /LPF 04/16/20 12:45 Urine Ascorbic Acid NEGATIVE (NEGATIVE) 04/16/20 12:45 Urine Opiates Screen NEGATIVE 04/16/20 12:45 Urine Methadone Screen NEGATIVE 04/16/20 12:45 Ur Barbiturates Screen NEGATIVE 04/16/20 12:45 Ur Phencyclidine Scrn NEGATIVE 04/16/20 12:45 Ur Amphetamines Screen NEGATIVE 04/16/20 12:45 U Benzodiazepines Scrn NEGATIVE 04/16/20 12:45 Urine Cocaine Screen NEGATIVE 04/16/20 12:45 U Marijuana (THC) Screen UNCONFIRMED POSITIVE 04/16/20 12:45 RPR NONREACTIVE (NONREACTIVE) 04/16/20 13:50 Blood Type O POSITIVE 04/16/20 13:50 Antibody Screen NEGATIVE 04/16/20 13:50 Plan Health Concerns: BP, smoking [facility] Plan of Treatment: discharge home, rev S&S to report, not smoking [facility] Goals: no complications Time Spent: Less than 30 Minutes
[2020-04-18] MEDS: DOCUSATE SODIUM 100 MG CAPSULE PO SCH (10:49)
[2020-04-18] MEDS: PRENATAL VITAMIN W DHA CAPSULE PO SCH (10:49)
[2020-04-18] MEDS: FAMOTIDINE 20 MG TABLET PO SCH (10:49)
[2020-04-18] MEDS: FERROUS SULFATE 325 MG TABLET PO SCH (10:49)
[2020-04-18] MEDS: SENNOSIDES/DOCUSATE 8.6-50 MG 1 EACH TABLET PO SCH (10:49)
[2020-04-18 11:53] VITALS: BP 133/70
== END 2020-04-18 12:18 | disposition home or self-care (01) | DRG 806 ==
LOC: LC 12:20 → LR 14:34 → 2S 21:34
PROVIDERS: ADMIT Obstetrics & Gynecology; ATTEND Obstetrics & Gynecology
PROC: 10E0XZZ Delivery of Products of Conception, External Approach (ICD-10-PCS; principal; 2020-04-16)
PROC: 3E0234Z Introduction of Serum, Toxoid and Vaccine into Muscle, Percutaneous Approach (ICD-10-PCS; 2020-04-18)
DX: O60.14X0 Preterm labor third trimester with preterm delivery third trimester, not applicable or unspecified (principal); O99.324 Drug use complicating childbirth; Z37.0 Single live birth; O24.429 Gestational diabetes mellitus in childbirth, unspecified control; F12.90 Cannabis use, unspecified, uncomplicated; O69.81X0 Labor and delivery complicated by cord around neck, without compression, not applicable or unspecified; Z3A.35 35 weeks gestation of pregnancy; Z91.040 Latex allergy status; Z91.018 Allergy to other foods; Z91.010 Allergy to peanuts; Z23 Encounter for immunization
CPT/HCPCS: 1967; 36415; 80307; 80349; 81001; 82962; 85025; 85027; 86592; 86850; 86900; 86901; 87077; 87081; 90715; G0480; J0702; J2540; J2590; J2795; J3010; J3490; J7060

== ENCOUNTER 2020-04-21 11:46 | Emergency (ER) | payer MEDICAID ==
[2020-04-21 12:13] VITALS: BP 148/88
--- NOTE | 2020-04-21 12:35 | ER Document Report ---
ED Medical Screen (RME) - General Chief Complaint: Chest Pain Stated Complaint: CHEST PAIN Time Seen by Provider: 04/21/20 12:28 Primary Care Provider: ZAY MERINO MD [Primary Care Provider] - Follow up as needed Information source: Patient Notes: Patient is status post delivery 5 days ago. Patient reports that she has a history of hypertension prior to the and her blood pressure was elevated after the . Patient states that she developed a headache yesterday has had some blurred vision. Patient complains of chest pain that radiates around to her back. Patient complains of right upper quadrant tenderness. Patient states that she has had continued vaginal bleeding with clotting. Patient states she feels faint. I have greeted and performed a rapid initial assessment of this patient. A comprehensive ED assessment and evaluation of the patient, analysis of test results and completion of the medical decision making process will be conducted by additional ED providers. TRAVEL OUTSIDE OF THE [place] IN LAST 30 DAYS: No - Related Data Allergies/Adverse Reactions: peanut Allergy (Unknown, Verified 04/21/20 12:27) Unknown reaction ondansetron [From Zofran] Allergy (Verified 04/21/20 12:27) strawberry Allergy (Verified 04/21/20 12:27) Hives tree nut Allergy (Verified 04/21/20 12:27) amoxicillin Adverse Reaction (Intermediate, Verified 04/21/20 12:27) GI upset morphine Adverse Reaction (Verified 04/21/20 12:27) berries Allergy (Uncoded 04/21/20 12:27) Past Medical History Renal/ Medical History: Reports: Hx Ovarian Cysts. Denies: Hx Peritoneal Dialysis Past Surgical History: Reports: Hx Cholecystectomy - Immunizations Hx Diphtheria, Pertussis, Tetanus Vaccination: Yes Physical Exam - Vital signs Vitals: Temp Pulse Resp BP Pulse Ox 98.1 F 61 18 148/88 H 99 04/21/20 12:09 04/21/20 12:09 04/21/20 12:09 04/21/20 12:09 04/21/20 12:09 - Cardiovascular Rhythm: Regular Heart sounds: S1 appreciated, S2 appreciated - Neurological Briseida Coma Scale Eye Opening: Spontaneous Briseida Coma Scale Verbal: Oriented Briseida Coma Scale Motor: Obeys Commands Briseida Coma Scale Total: 15 Course - Vital Signs Vital signs: Temp Pulse Resp BP Pulse Ox 98.1 F 61 18 148/88 H 99 04/21/20 12:09 04/21/20 12:09 04/21/20 12:09 04/21/20 12:09 04/21/20 12:09 Doctor's Discharge - Discharge Referrals: ZAY MERINO MD [Primary Care Provider] - Follow up as needed
--- NOTE | 2020-04-21 13:46 | RADIOLOGY REPORT (SQ) ---
EXAM DESCRIPTION: CHEST 2 VIEWS IMAGES COMPLETED DATE/TIME: 04/21/2020 1:27 pm REASON FOR STUDY: cp COMPARISON: None. TECHNIQUE: Frontal and lateral radiographic views of the chest acquired. NUMBER OF VIEWS: Two view. LIMITATIONS: None. FINDINGS: LUNGS AND PLEURA: No opacities, masses or pneumothorax. No pleural effusion. MEDIASTINUM AND HILAR STRUCTURES: No masses or contour abnormalities. HEART AND VASCULAR STRUCTURES: Heart normal size. No evidence for failure. BONES: No acute findings. HARDWARE: None in the chest. OTHER: No other significant finding. IMPRESSION: NO SIGNIFICANT RADIOGRAPHIC FINDING IN THE CHEST. TECHNICAL DOCUMENTATION: JOB ID: [id number] 2010 [employer]- All Rights Reserved Reading location - IP/workstation name: [email or web address]
--- NOTE | 2020-04-21 13:48 | RADIOLOGY REPORT (SQ) ---
EXAM DESCRIPTION: CT HEAD WITHOUT IMAGES COMPLETED DATE/TIME: 04/21/2020 1:35 pm REASON FOR STUDY: CAMPBELL, blurred vision COMPARISON: CT brain 10/04/2018 MRI brain 10/31/2018 TECHNIQUE: Axial images acquired through the brain without intravenous contrast. Images reviewed wi th bone, brain and subdural windows. Additional sagittal and coronal reconstructions were generated. Images stored on PACS. All CT scanners at this facility use dose modulation, iterative reconstruction, and/or weight based d osing when appropriate to reduce radiation dose to as low as reasonably achievable (ALARA). [facility]: Dose Right [facility]: CareDose [facility]: Dose Right [facility]: Teradose 4D [facility]: [email or web address] RADIATION DOSE: CT Rad equipment meets quality standard of care and radiation dose reduction techniq ues were employed. CTDIvol: 53.2 mGy. DLP: 991 mGy-cm. mGy. LIMITATIONS: None. FINDINGS: VENTRICLES: Normal size and contour. CEREBRUM: No masses. No hemorrhage. No midline shift. No evidence for acute infarction. Normal gra y/white matter differentiation. No areas of low density in the white matter. CEREBELLUM: No masses. No hemorrhage. No alteration of density. No evidence for acute infarction. EXTRAAXIAL SPACES: No fluid collections. No masses. ORBITS AND GLOBE: No intra- or extraconal masses. Normal contour of globe without masses. CALVARIUM: No fracture. PARANASAL SINUSES: No fluid or mucosal thickening. SOFT TISSUES: No mass or hematoma. OTHER: Empty sella, an anatomic variant unchanged from prior studies IMPRESSION: No acute findings EVIDENCE OF ACUTE STROKE: NO. COMMENT: Quality ID # [id number]: Final reports with documentation of one or more dose reduction techniques (e.g., Automated exposure control, adjustment of the mA and/or kV according to patient size, use of iterative reconstruction technique) TECHNICAL DOCUMENTATION: JOB ID: [id number] 2010 [employer]- All Rights Reserved Reading location - IP/workstation name: [email or web address]
[2020-04-21 14:03] LABS: APPEARANCE,URINE CLOUDY; BILIRUBIN,URINE NEGATIVE (NEGATIVE); COLOR,URINE RED; GLUCOSE, URINE NEGATIVE (NEGATIVE); KETONES,URINE NEGATIVE (NEGATIVE); LEUKOCYTE ESTERASE,URINE MODERATE (NEGATIVE); NITRITE,URINE NEGATIVE (NEGATIVE); PROTEIN,URINE 100 mg/dL (NEGATIVE); URINE SPECIFIC GRAVITY 1.014; UROBILINOGEN,URINE NEGATIVE mg/dL (<2.0)
--- NOTE | 2020-04-21 20:53 | EKG REPORT ---
SEVERITY:- ABNORMAL ECG - SINUS RHYTHM FIRST DEGREE AV BLOCK : Confirmed by: Jaclyn Hdz MD 21-Apr-2020 20:52:46
== END 2020-04-21 14:53 | disposition left against medical advice (07) ==
LOC: ER 11:46
DX: R07.9 Chest pain, unspecified (principal); I10 Essential (primary) hypertension; H53.8 Other visual disturbances; M54.9 Dorsalgia, unspecified; R10.11 Right upper quadrant pain; Z88.8 Allergy status to other drugs, medicaments and biological substances; Z88.0 Allergy status to penicillin
CPT/HCPCS: 70450; 71046; 81001; 93005; 93010